=== PATIENT | male | born 1980 | race Caucasian/White ===

== ENCOUNTER 2025-01-06 08:50 | Emergency (ER) | payer OTHER, SELFPAY ==
[2025-01-06 08:56] VITALS: BP 137/89; PULSE 45; RESP 20; TEMP 36.4; O2SAT 98; BMI 25.2
[2025-01-06 09:32] VITALS: BMI 25.4
--- NOTE | 2025-01-06 09:49 | EKG12_ITS ---
Test Reason : NEURO Blood Pressure : */* mmHG Vent. Rate : 37 BPM Atrial Rate : 37 BPM P-R Int : 196 ms QRS Dur : 104 ms QT Int : 470 ms P-R-T Axes : 55 62 52 degrees QTcB Int : 368 ms Critical Test Result: Low HR Marked sinus bradycardia with sinus arrhythmia Minimal voltage criteria for LVH, may be normal variant ( Sokolow-Kennedy ) Abnormal ECG Confirmed by PENNY DOYLE, LILIAN ([id number]), greeting card editor CHRIS ANDREA ([id number]) on 01/08/2025 6:38:50 AM Referred By: Confirmed By: LILIAN FRANCIS MD
--- NOTE | 2025-01-06 09:49 | CT_ITS ---
PROCEDURE: CTA HEAD AND NECK W/ CONTRAST 01/06/2025 REASON FOR EXAM: LEFT ARM NUMBNESS, RESOLVING TECHNIQUE: CTA HEAD AND NECK W/ CONTRAST Multiplanar Sagittal and Coronal images were obtained. CONTRAST: Isovue 370 VOLUME: 100 mL One or more dose reduction techniques were used (e.g., Automated exposure control, adjustment of the mA and/or kV according to patient size, use of iterative reconstruction technique). RADIATION DOSE SUMMARY: CTDlvol: 36 mGy DLP: 1495.47 mGycm COMPARISON: None FINDINGS: Aortic Arch: Normal size and branching pattern. No significant atherosclerotic plaque. Brachiocephalic and Subclavians: Unremarkable RIGHT Carotid: Right CCA: Unremarkable. Right ICA: Unremarkable. Right ECA: Unremarkable. LEFT Carotid: Left CCA: Unremarkable. Left ICA: Unremarkable. Left ECA: Unremarkable. Vertebrals: Codominant. Arise from the subclavians. Both vertebrals form the basilar. RIGHT Vertebral: Unremarkable. LEFT Vertebral: Unremarkable. Anatomy: [place] anatomy is normal. Aneurysm or avm: No intracranial aneurysms or large vascular malformations are identified. Anterior cerebral arteries: Unremarkable: Middle cerebral arteries: Unremarkable. Basilar artery: Unremarkable. Posterior cerebral arteries: origin of the right posterior cerebral artery arising from the right internal carotid artery. Other major branches of the posterior circulation: Unremarkable. Major venous structures: Unremarkable. Other findings: Neck: No lymphadenopathy. Lungs: Lung apices are clear. Bones: Bones are unremarkable. CT/CTA Head AND Neck W/ Contrast IMPRESSION: Normal examination. Reading Location: [place] [id number]
--- NOTE | 2025-01-06 09:51 | EDS_ITS ---
HPI History of Present Illness Chief Complaint: Neuro S/Sx Informant: patient Narrative Narrative: Patient is a 44-year-old male with history of hemiplegic migraines and anxiety presenting with neurologic symptoms. Patient states he woke up around 6 AM to do his normal morning exercise. He states when he was trying to put on his shoes he noticed that he could not use his left hand and it was just limp. He also had decree sensation of his left upper extremity from about the elbow down. He did try to talk to his but could only grunts. He was able to write. Of the symptoms had the recommend calling EMS. When EMS arrived the symptoms were resolving. Patient came in for further evaluation. He states he had a similar episode about 11 years ago and at that time had had a largely negative workup, followed up with neurology thought it was imaging and migraine. Currently he states that he can feel his hands but his left upper extremity feels slightly tingly and when he pinches his index finger while he feels that he states he should feel it more. He notes he is now developing a headache which is behind his right eye and more frontal. He has associated photophobia. He states this feels like a typical migraine. He gets these about twice a year. He denies any vision changes. He denies any history of diabetes, hypertension or hyperlipidemia. States he exercises every morning. No other complaints or concerns at this time. [facility] Medical History Anxiety Migraine Home Medications ?Medication ?Instructions ?Recorded ?Last Taken ?Type lorazepam 0.5 mg tablet (Ativan) 0.5 mg PO Q12H PRN an xiety 01/06/25 Unknown History Allergy/AdvReac Type Severity Reaction Status Date / Time No Known Allergies Allergy Verified 01/06/25 09:44 Social History Smoking Status: Never smoker ROS ROS ED Constitutional Constitutional ED: Denies chills or fever(s) Eyes Eyes: Reports other Details: Photophobia ; Denies blurry vision or change in vision Cardiovascular Cardiovascular: Denies chest pain Respiratory/Chest Respiratory/Chest: Denies cough or dyspnea Gastrointestinal Gastrointestinal: Reports nausea; Denies abdominal pain or vomiting Musculoskeletal Musculoskeletal: Denies arthralgias or myalgias Integumentary Denies rash Neurologic Neurologic: Reports headache(s), paresthesias LUE and other Details: Resolved speech changes and weakness of the left upper Psychiatric Psychiatric: Reports anxiety Hematologic/Lymphatic Hematologic/Lymphatic: Denies easy bleeding or easy bruising EXAM Physical Exam Const Vital Signs: 01/06/25 08:56 01/06/25 10:09 01/06/25 11:00 Temperature 97.5 F L Temperature Source Temporal Pulse Rate 45 L 42 L Respiratory Rate 20 H Blood Pressure 137/89 H 120/83 H 128/71 H Blood Pressure Mean 105 95 90 Pulse Ox 98 99 Oxygen Delivery Method Room Air Positive well nourished and well developed General Appearance ED: well developed and NAD HEENT Reports moist mucous membranes Negative for trauma Eyes PERRL and EOMs intact bilaterally Neck supple and no JVD Neck Narrative: No nuchal rigidity Chest Wall inspection of chest normal and palpation of chest normal Resp normal respiratory effort and clear to auscultation bilaterally Cardio regular rate and regular rhythm GI normal to inspection, nondistended, normoactive bowel sounds and non-tender Extremity normal to inspection Extremity Narrative: Normal intrinsic and extrinsic motions of the hand. Sensation intact in all dermatomes. General Extremety ED: Negative for edema or tenderness General Extremity: Negative for edema Neuro oriented x3 and CN's II-XII intact bilaterally Neuro Narrative: NIH equals 0. Patient has subjective paresthesias to the left upper extremity but sensation is intact to light touch. He has normal strength. Has normal speech. Normal [id number]. Sensorium / Orientation: alert Motor Exam: strength 5/5 throughout Skin no rashes or lesions noted and no wounds MDM MDM MDM Narrative Medical decision making narrative: Patient evaluated for neurologic symptoms that occurred this morning including what sounds like expressive aphasia and weakness of the left upper extremity. They are followed by headache. He does have a history of hemiplegic migraine. Does not have any stroke risk factors. He still some mild tingling/paresthesia of the left upper extremity. Will obtain a CTA of the head and neck as well as basic labs we will give IV fluids, Reglan and Tylenol in addition to oral Ativan (patient requested) and reevaluate. Patient reevaluated. He states he is feeling a little better still has some paresthesias/tingling to his left arm but states it is continuing to improve. States he still has his headache. Discussed that workup is largely normal including CBC, BMP. CTA of the head and neck is obtained given his neurologic symptoms with NIH of 0. Is negative for any acute process. I did speak with Dr. Scott, radiology who also states there is no abnormalities of the brain parenchyma. Patient is reevaluated and we reviewed the results. I did offer him admission for MRI for definitive diagnosis to rule out TIA or other more discrete neurologic process. Patient states he really would prefer to go home. He does not have any stroke risk factors and his ABCD 2 score is 2 for duration of symptoms. His 1 week stroke risk is 1.2% and patient would prefer close outpatient follow-up. He will be given referral for neurology. Patient is acting appropriately. He is offered further migraine medication including Solu- Medrol or magnesium but declined stating his headache did seem to go away on its own. Counseled that if he does have any worsening or new neurologic symptoms he must immediately turn to the emergency room. He verbalized understanding of this. Patient is bradycardic the emergency room but he is quite healthy and asymptomatic from this. He is an athlete. Suspect this is physiologic bradycardia does not need further workup at this time. Lab Data Attestation: I reviewed the patient's lab results. Labs: Laboratory Results - last 24 hr 01/06/25 01/06/25 09:48 10:00 WBC 6.1 RBC 4.44 L Hgb 14.0 Hct 40.5 MCV 91.2 MCH 31.5 MCHC 34.6 RDW Std Deviation 41.9 RDW Coeff of Danae 12.7 Plt Count 263 MPV 10.7 Immature Gran % (Auto) 0.300 Neut % (Auto) 63.2 Lymph % (Auto) 24.8 Boyd % (Auto) 9.6 Eos % (Auto) 1.1 Baso % (Auto) 1.0 Absolute Neuts (auto) 3.9 Absolute Lymphs (auto) 1.52 Nucleated RBC % 0 Sodium 139 Potassium 4.4 Chloride 105 Carbon Dioxide 26.6 Anion Gap 8 BUN 15 Creatinine 0.81 Estim Creat Clear Calc 120.16 Est GFR (MDRD) Non-Af 112 BUN/Creatinine Ratio 18.9 Glucose 95 Calcium 8.8 POC Glucose 81 Radiography Diagnostic Testing: Clinical Impression(s) from Imaging Studies Head/Neck CTA 01/06/25 09:49 IMPRESSION: Normal examination. Reading Location: [place] [id number] Rhythm Strip Rhythm Strip: Sinus Rhythm Rate: 37 Ectopy: None EKG Initial EKG: Attestation: I personally reviewed and interpreted this EKG as follows: Interpretation: Sinus Bradycardia Comments: Sinus bradycardia at a rate of 37 bpm with some sinus arrhythmia Minimal voltage criteria for LVH Normal axis Normal ST segments No prior EKG available for comparison Discharge Plan Triage Chief Complaint: Neuro S/Sx ED Provider: Deanne Couch Dx/Rx/DC Orders Clinical Impression: Migraine, Arm paresthesia, left Instructions: ED Headache Unspecified, ED Paraesthesias Prescriptions: No Action lorazepam [Ativan] 0.5 mg tablet 0.5 mg PO Q12H PRN (Reason: anxiety) Primary Care Provider: Marciano Hamm Referrals: Ilia Ortega MD [Non-Staff] - Tomer Roa MD [Non-Staff -Ordering Privileges] - Activity Restrictions/Additional Instructions: Workup today was largely normal with no acute abnormalities. As we discussed we cannot definitively rule out a small stroke/TIA without an MRI however your risk is low at this time. It is also possible that this is an atypical migraine/hemiplegic migraine. After discussion you have elected to go home and follow-up outpatient. Please follow-up with neurology as well as your primary care doctor. If you have a progression worsening your symptoms please do not hesitate to return to the emergency room. Print Language: Azeri Disposition Disposition: Home, Self Care
[2025-01-06] MEDS: 0.9% Normal Saline (1000mL) 1,000 ML 1000 ML IV (10:06)
[2025-01-06 10:08] LABS: Hematocrit 40.5 % (40-54); Hemoglobin 14.0 g/dL (13.0-16.5); Immature Granulocytes Count 0.020 X10^3/uL (0.0-0.0); Mean Corp Hgb Conc 34.6 g/dL (32-36); Mean Corpuscular Volume 91.2 fL (80-94); Mean Platelet Vol. 10.7 fl (6.2-12.0); NRBC Flagged by Analyzer 0 % (0-5); Platelet Count 263 K/mm3 (150-450); RBC Distribution Width CV 12.7 % (11.6-14.6); RBC Distribution Width SD 41.9 fl (35.1-43.9); Red Blood Count 4.44 M/mm3 (4.6-6.2); White Blood Count 6.1 K/mm3 (4.4-11.0)
[2025-01-06 10:09] VITALS: BP 120/83
[2025-01-06 10:38] LABS: Anion Gap 8 (5-15); BUN 15 mg/dL (4-19); BUN/Creat Ratio 18.9 RATIO (10-20); Calcium,Total 8.8 mg/dL (7.6-11.0); Carbon Dioxide 26.6 mmol/L (21.0-32.0); Chloride 105 mmol/L (98-108); Estimated Creatinine Clearance 120.16 ml/min (50-250); Glucose 95 mg/dL (70-99); Potassium 4.4 mmol/L (3.3-5.1)
[2025-01-06 11:00] VITALS: BP 128/71; PULSE 42; O2SAT 99
[2025-01-06 11:58] VITALS: BP 128/71; PULSE 42; RESP 13; TEMP 36.8; O2SAT 99
== END 2025-01-06 12:04 | disposition home or self-care (01) ==
PROVIDERS: Emergency Provider Emergency Medicine; PCP Family Medicine; Visit Provider Emergency Medicine
DX: G43.909 Migraine, unspecified, not intractable, without status migrainosus (principal); R20.2 Paresthesia of skin; F41.9 Anxiety disorder, unspecified; Z79.899 Other long term (current) drug therapy
CPT/HCPCS: 70496; 70498; 80048; 82962; 85025; 93005; 96361; 96374; 96375; 96376; 99283; Q9967; A4216